=== PATIENT | male | born 2000 | race Hispanic/Latino ===

== ENCOUNTER 2019-08-27 12:55 | Emergency (ER) | payer SELFPAY ==
[2019-08-27 13:06] VITALS: BP 135/85; PULSE 76; RESP 16; TEMP 36.5; O2SAT 100
--- NOTE | 2019-08-27 13:33 | ED.GENADULT ---
HPI - General Adult General Chief complaint: Wound/Laceration Stated complaint: Laceration Time Seen by Provider: 08/27/19 13:47 Source: patient Mode of arrival: ambulatory Limitations: no limitations History of Present Illness HPI narrative: 19-year-old male patient presents to the [facility] with complaints of laceration to his penis for the past 5 days. Patient states it is very sore. Patient states that the pain increases when he has sex. Patient states he is sexually active and does not use protection. Patient states he is in a monogamous relationship that he is aware of. Patient denies any pain with urination, penile discharge. Patient denies any fevers. Related Data Allergies Allergy/AdvReac Type Severity Reaction Status Date / Time No Known Allergies Allergy Verified 06/27/17 04:55 Review of Systems Review of Systems: Narrative: CONSTITUTIONAL: Denies fever, chills, or sweats. EYES: Denies visual changes, redness, or discharge. ENT: Denies rhinorrhea, congestion, sore throat, or otalgia. CARDIOVASCULAR: Denies chest pain, palpitations, or edema. RESPIRATORY: Denies cough or dyspnea. GASTROINTESTINAL: Denies abdominal pain, nausea, vomiting, or diarrhea. GENITOURINARY: Denies dysuria or hematuria. Positive laceration to the penis x5 days SKIN: Denies rash or itching. MUSCULOSKELETAL: Denies back pain, joint pain, or myalgia. NEUROLOGIC: Denies headache, numbness, or weakness. PSYCHIATRIC: Denies anxiety or depression. PMFSH Comments At the time of my signature I agree with nursing past medical history, surgical, social, and family history. There is no relevant family history pertinent to the presenting complaint. Exam Narrative: Exam Narrative: GENERAL: Well-appearing, well-nourished, and in no acute distress. HEAD: Normocephalic, atraumatic. EYES: PERRLA and EOMI. ENT: Nares clear, no rhinorrhea or epistaxis. Mucous membranes moist. NECK: Supple. No lymphadenopathy CHEST: Clear to auscultation. No respiratory distress. HEART: Regular rate and rhythm. No murmur heard. Normal peripheral pulses. ABDOMEN: Soft, nontender, nondistended, normal active bowel sounds. : Normal external genitalia, circumcised male. Urinary meat us clear. Foreskin retracts easily. Patient has a blister/ulcer noted to the 9:00 area of the head of the penis. Patient does complain of pain to this area there is no obvious discharge noted. EXTREMITIES: Normal range of motion. No edema. SKIN: Warm, dry, no rash. NEURO: No focal deficits. Alert and oriented x3. Course Vital Signs Vital signs: Vital Signs Temperature 36.5 C 08/27/19 13:06 Pulse Rate 76 08/27/19 13:06 Respiratory Rate 16 08/27/19 13:06 Blood Pressure 135/85 08/27/19 13:06 Pulse Oximetry 100 08/27/19 13:06 Temperature 36.5 C 08/27/19 13:06 Pulse Rate 76 08/27/19 13:06 Respiratory Rate 16 08/27/19 13:06 Blood Pressure 135/85 08/27/19 13:06 Pulse Oximetry 100 08/27/19 13:06 Vital signs reviewed. The patient has been informed that they may have pre-hypertension or Hypertension based on a BP reading in the department. I recommend that the patient call the primary care provider listed on their discharge instructions or a physician of their choice this week to arrange follow up for further evaluation of possible pre-hypertension or Hypertension Medical Decision Making Differential Diagnosis Differential Diagnosis: Differential diagnosis: Abscess, cellulitis, hidradenitis, laceration, puncture wound. Simple, intermediate, or complex laceration. Gonorrhea, chlamydia, Trichomonas, bacterial vaginosis, herpes, HIV, yeast infection, urinary tract infection. Cussed with patient that we are can go ahead and swab the blister today and send that off for viral culture of possible herpes. Discussed with patient that we are also can get a urine sample from him and test him today for gonorrhea chlamydia and trichomonas and we will go ahead and
[2019-08-27] MEDS: AZITHROMYCIN 250 MG TABLET 1000 MG PO (14:05)
[2019-08-27] MEDS: LIDOCAINE HCL 1% LOCAL INJ 20 ML VIAL IM (14:06)
[2019-08-27] MEDS: cefTRIAXone 250 MG VIAL IM (14:06)
== END 2019-08-27 14:26 | disposition home or self-care (01) ==
PROVIDERS: Emergency Provider Nurse Practitioner Family
DX: S30.822A Blister (nonthermal) of penis, initial encounter (principal); X58.XXXA Exposure to other specified factors, initial encounter
CPT/HCPCS: 87140; 87255; 87491; 87591; 87661; 96372; 99213; A9270; G0463; J0696

== ENCOUNTER 2022-10-23 10:44 | Emergency (ER) | payer OTHER, SELFPAY ==
--- NOTE | ~2022-10-23 | XR_ITS ---
EXAMINATION: XR finger 5th RT min 2V DATE: 10/23/2022 11:06 INDICATION: Injury to the right fifth digit TECHNIQUE: Dorsal palmar, lateral and oblique views of the right fifth digit were obtained COMPARISON: None FINDINGS: Alignment is normal. Prominent osseous excrescence at the dorsal base of the fifth distal phalanx sug gestive of an old healed dorsal avulsion fracture. No acute fractures identified. Joint spaces are no rmal. Small bone island at the hamate. Soft tissues are unremarkable. IMPRESSION: 1. No acute osseous abnormality. Reviewed, dictated and finalized at location A.
[2022-10-23 10:54] VITALS: BP 116/94; PULSE 90; RESP 16; TEMP 36.4; O2SAT 99
--- NOTE | 2022-10-23 11:21 | ED.EXTPRO ---
HPI - Extremity Problem General Chief complaint: Extremity Injury, Upper Stated complaint: Right Hand Pain Time Seen by Provider: 10/23/22 11:05 Source: patient and RN notes reviewed Mode of arrival: ambulatory Limitations: no limitations History of Present Illness HPI Narrative: Patient presents today complaining of pain to his right 5th finger. States he dropped a log on it while making a Bon fire at 9:00 p.m. last night. Denies numbness or tingling. Currently rates his pain 8/10 and has been trying ice and ibuprofen with mild relief. States he previously broke this finger approximately 1 year ago and did not seek treatment. Related Data Home Medications Medication Instructions Recorded Confirmed sertraline 50 mg tablet 50 mg PO DAILY 10/23/22 10/23/22 Allergies Allergy/AdvReac Type Severity Reaction Status Date / Time No Known Allergies Allergy Verified 10/23/22 10:56 Review of Systems Review of Systems: CONSTITUTIONAL: Denies body aches, fever, chills, or sweats. EYES: Denies visual changes, redness, or discharge. ENT: Denies rhinorrhea, congestion, sore throat, or otalgia. CARDIOVASCULAR: Denies chest pain, palpitations, or edema. RESPIRATORY: Denies cough or dyspnea. GASTROINTESTINAL: Denies abdominal pain, nausea, vomiting, or diarrhea. GENITOURINARY: Denies dysuria or hematuria. SKIN: Denies rash, itching, or wounds. MUSCULOSKELETAL: Denies back pain, or myalgia.+ right 5th finger pain NEUROLOGIC: Denies headache, numbness, tingling, or weakness. PSYCH: Denies depression or anxiety. PMFSH Comments At time of signature, I have reviewed and agree with nursing past medical, surgical, social and family history unless otherwise noted. Please see nursing chart for further information. There is no relevant family history pertinent to the presenting complaint Exam Narrative: GENERAL: Well-appearing, well-nourished, and in no acute distress. HEAD: Normocephalic, atraumatic. EYES: EOMI. No redness or drainage. Conjunctivae normal. ENT: Mucous membranes pink and moist. NECK: Normal AROM. CHEST: No respiratory distress. EXTREMITIES: Right 4th finger: Tenderness to the D IP with mild edema. Full AROM with increased pain. Distal sensation intact. Capillary refill normal. Nail is not affected. SKIN: Warm, dry, no rash. Capillary refill normal. Normal skin turgor. NEURO: No focal deficits. Alert and oriented x3. Gait steady. PSYCH: Normal affect. No signs of depression or anxiety. Course Course Level of Care: Express Care Visit Vital Signs Vital signs: Vital Signs Temperature 97.6 F 10/23/22 10:54 Pulse Rate 90 10/23/22 10:54 Respiratory Rate 16 10/23/22 10:54 Blood Pressure 116/94 H 10/23/22 10:54 Pulse Oximetry 99 10/23/22 10:54 Oxygen Delivery Room Air 10/23/22 10:54 Temperature 97.6 F 10/23/22 10:54 Pulse Rate 90 10/23/22 10:54 Respiratory Rate 16 10/23/22 10:54 Blood Pressure 116/94 H 10/23/22 10:54 Pulse Oximetry 99 10/23/22 10:54 Oxygen Delivery Room Air 10/23/22 10:54 Reviewed. Pt has been instructed to follow up with his PCP regarding his elevated blood pressure today. Procedures Orthopedic Splinting/Casting Injury #1: Splinting/Casting Date: 10/23/22 Splinting/Casting Time: 11:26 Side: right Upper Extremity Injury Location: finger Upper Extremity Immobilizer: finger (other) Pre-Formed: other (Finger splint) Pre-Procedure Neuro Vascular Exam: normal Post-Procedure Neuro Vascular Exam: normal Additional Comments: Placed by tech [facility] - Extremity (Nontraumatic) MDM Narrative Medical decision making narrative: X-ray negative for fracture. Splint applied for comfort. Anticipatory guidance given. Differential Diagnosis Differential diagnosis: Likely other (Finger fracture, finger sprain, contusion) Imaging Data Radiologist's impression: ITS Impressions Fin
== END 2022-10-23 11:30 | disposition home or self-care (01) ==
PROVIDERS: Emergency Provider Nurse Practitioner
DX: S60.051A Contusion of right little finger without damage to nail, initial encounter (principal); W22.8XXA Striking against or struck by other objects, initial encounter
CPT/HCPCS: 29130; 73140; 99213; G0463

== ENCOUNTER 2023-01-16 11:03 | Emergency (ER) | payer OTHER, SELFPAY ==
--- NOTE | 2023-01-16 11:05 | ED.SKABFB ---
HPI - Skin/Abscess/Foreign Bdy General Chief complaint: Skin/Abscess/Foreign Body Stated complaint: Skin Issues Time Seen by Provider: 01/16/23 11:05 Source: patient Mode of arrival: ambulatory Limitations: no limitations History of Present Illness HPI narrative: Brandon is a 22-year-old male patient presenting to the clinic today with complaints of hair loss on his scalp. He reports he has had a spot on the top of his head that has hair loss. Area is scaly and itchy. Nonpainful. He denies any known liver issues. Related Data Home Medications Medication Instructions Recorded Confirmed sertraline 50 mg tablet 50 mg PO DAILY 10/23/22 01/16/23 Allergies Allergy/AdvReac Type Severity Reaction Status Date / Time No Known Allergies Allergy Verified 01/16/23 11:06 Review of Systems Review of Systems: Pertinent positives per HPI. Patient denies any fever, chills, headache, visual changes, dizziness, cough, runny nose, sore throat, shortness of breath, chest pain, palpitations, nausea, vomiting, diarrhea, constipation, abdominal pain, or any urinary issues. PMFSH Comments At the time of my signature, I reviewed and agree with the nursing past medical, surgical, social, and family history. There is no relevant family history pertinent to the patient complaint. Exam Narrative: General: Well-developed, well nourished, in no apparent distress Head: Normocephalic, atraumatic. Cardio: Regular rate and rhythm, s1 and s2 normal, no murmur appreciated. Resp: Clear to auscultation bilaterally, no rhonchi, rales, wheezing or rubs. Integumentary: [place], warm, and dry, half dollar size scaly area to the scalp with hair loss-right side of scalp Course Course Emergency Course: Portions of this record may have been created with voice recognition software. Level of Care: Express Care Visit Vital Signs Vital signs: Vital signs reviewed MDM - Skin/Abscess/Foreign Bdy MDM Narrative Medical decision making narrative: At the time of the patient is resting comfortably on the exam table. I suspect patient may have tinea capitis/alopecia. 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 Supportive measures were discussed with the patient he voiced understanding discharge instructions and agrees to treatment plan. Differential Diagnosis Differential diagnosis: Likely abscess of skin or subcutaneous tissue, eczema, insect bites, impetigo, contact dermatitis and other (Tinea capitis, alopecia, psoriasis) Discharge Plan Discharge Clinical Impression: Alopecia of scalp, Tinea capitis Patient Disposition: Home, Self-Care Condition: Stable Instructions: Antibiotic Form, Tinea Corporis (ED), Alopecia (DC) Additional Instructions: Take medication as prescribed-take with a high fat meal Follow-up with your PCP in 4 weeks if symptoms persist-may need further evaluation-lab work Recommend follow-up with the senior c software engineer Prescriptions: New griseofulvin microsize 500 mg tablet 500 mg PO DAILY 28 Days Qty: 28 0RF Rx Instructions: must administer with high-fat meal or food No Action sertraline 50 mg tablet 50 mg PO DAILY Follow-up/Referrals: Brett,Kim Monteiro MD [Primary Care Provider] - Stand Alone Forms: Work/School Release IP Time of Disposition: 11:22 Quality NIHSS Nursing Documentation ED NIHSS nursing documentation: reviewed/agree
[2023-01-16 11:13] VITALS: BP 127/84; PULSE 90; RESP 16; TEMP 36.5; O2SAT 99
[2023-01-16 11:18] VITALS: BP 127/84; PULSE 90; RESP 16; TEMP 36.5; O2SAT 99
== END 2023-01-16 11:28 | disposition home or self-care (01) ==
PROVIDERS: Emergency Provider Nurse Practitioner Family; PCP Family Medicine
DX: L65.9 Nonscarring hair loss, unspecified (principal); B35.0 Tinea barbae and tinea capitis; F41.9 Anxiety disorder, unspecified
CPT/HCPCS: 99213; G0463

== ENCOUNTER 2023-07-08 09:49 | Emergency (ER) | payer OTHER, SELFPAY ==
--- NOTE | ~2023-07-08 | XR_ITS ---
EXAMINATION: XR chest 2V DATE: 07/08/2023 10:23 INDICATION: Chest pain. TECHNIQUE: Frontal and lateral views of the chest were obtained. COMPARISON: CT abdomen and pelvis 06/27/2017 FINDINGS: There is mild scarring at the lung apices. No pleural effusion or pneumothorax. The heart s ize is normal. IMPRESSION: 1. Mild scarring at the lung apices. Reviewed, dictated and finalized at location A. AL WORKER DELINQU[employer]Y PREVENTION
[2023-07-08 09:58] VITALS: BP 131/84; PULSE 83; RESP 16; TEMP 36.3; O2SAT 100
--- NOTE | 2023-07-08 10:05 | ECG_ITS ---
Measurements Intervals [place] Rate: 76 P: 28 NM: 160 QRS: 2 QRSD: 79 T: 1 QT: 361 QTc: 408 Interpretive Statements SINUS RHYTHM WITH SINUS ARRHYTHMIA RSR' IN V1 OR V2, PROBABLY NORMAL VARIANT BORDERLINE ECG NO PREVIOUS ECG AVAILABLE FOR COMPARISON Electronically Signed On 07-08-2023 11:40:19 COMBINE OPERATOR by Pj Porter D.O.
--- NOTE | 2023-07-08 10:12 | ED.CHESTPAIN ---
HPI - Chest Pain General Chief Complaint: Chest Pain Stated Complaint: Chest Wall Pain Time Seen by Provider: 07/08/23 09:51 Source: patient Mode of arrival: ambulatory Limitations: no limitations History of Present Illness HPI narrative: Brandon is a 23-year-old male patient presenting to the clinic today with complaints of mid chest wall pain. He denies any radiation of pain. States that the pain is been going on for approximately 3 weeks. Pain is worse when he is lying down at night. States that it is an aching pain. Rates his pain a 4/10. 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 He denies any history of high blood pressure, hypercholesterolemia, prior cardiac history, pneumonia, bronchitis, or asthma. Related Data Home Medications Medication Instructions Recorded Confirmed sertraline 50 mg tablet 50 mg PO DAILY 10/23/22 07/08/23 Allergies Allergy/AdvReac Type Severity Reaction Status Date / Time No Known Allergies Allergy Verified 01/16/23 11:06 Review of Systems Review of Systems: Pertinent positives per HPI. Patient denies any fever, chills, rash, headache, visual changes, dizziness, cough, runny nose, sore throat, shortness of breath, chest pain, palpitations, nausea, vomiting, diarrhea, constipation, abdominal pain, or any urinary issues. PMFSH Comments At the time of my signature, I reviewed and agree with the nursing past medical, surgical, social, and family history. There is no relevant family history pertinent to the patient complaint. Course Course Emergency Course: Portions of this record may have been created with voice recognition software. Level of Care: Express Care Visit Vital Signs Vital signs: Vital Signs Temperature 36.3 C L 07/08/23 09:58 Pulse Rate 83 07/08/23 09:58 Respiratory Rate 16 07/08/23 09:58 Blood Pressure 131/84 07/08/23 09:58 Pulse Oximetry 100 07/08/23 09:58 Oxygen Delivery Room Air 07/08/23 09:58 Temperature 36.3 C L 07/08/23 09:58 Pulse Rate 83 07/08/23 09:58 Respiratory Rate 16 07/08/23 09:58 Blood Pressure 131/84 07/08/23 09:58 Pulse Oximetry 100 07/08/23 09:58 Oxygen Delivery Room Air 07/08/23 09:58 Vital signs reviewed MDM - Chest Pain MDM Narrative Medical decision making narrative: At the time of visit patient is resting comfortably on the exam table. Patient appears to be nontoxic. EKG shows sinus rhythm with sinus arrhythmia with a heart rate 76 beats per minute without ectopy. No ST elevation or depression noted, no T wave inversion. Chest x-ray negative for any sign pneumonia. I suspect patient may have costochondritis/chest wall pain. Prescription for naproxen was sent to the pharmacy. Supportive measures were discussed with the patient and they voiced understanding discharge instructions and agrees to treatment plan. Return precautions reviewed Differential Diagnosis Differential diagnosis: Likely pneumothorax, stable angina, unstable angina pectoris, atypical chest pain, st elevation myocardial infarction, costochondritis and chest pain ECG Data EKG #1: Attestation: I personally reviewed and interpreted this ECG as follows: ECG completion date: 07/08/23 ECG completion time: 10:12 Prior ECG tracings: not available for review Interpretation: EKG shows sinus rhythm with a sinus arrhythmia without ectopy, no ST elevation or depression noted, no T-wave inversion noted, ventricular rate is 76 beats per minute, PA interval is 160 milliseconds, QRS durations 79 milliseconds, QT-QTC is 367-392 milliseconds, P-R-T axis is 28 2 1 Discharge Plan Discharge Clinical Impression: Costalchondritis Patient Disposition: Home, Self-Care Condition: Stable Instructions: Antibiotic Form, Costochondritis (ED), Chest Wall Pain (ED) Additional Instructions: EKG is normal in the clinic today Madeline
== END 2023-07-08 10:41 | disposition home or self-care (01) ==
PROVIDERS: Emergency Provider Nurse Practitioner Family; PCP Family Medicine
DX: M94.0 Chondrocostal junction syndrome [Tietze] (principal); Z79.899 Other long term (current) drug therapy
CPT/HCPCS: 71046; 93005; 99213; G0463

== ENCOUNTER 2023-12-30 20:40 | Emergency (ER) | payer OTHER, SELFPAY ==
--- NOTE | ~2023-12-30 | CT_ITS ---
EXAMINATION: CT brain wo con DATE: 12/30/2023 21:10 INDICATION: HEADACH . TECHNIQUE: Computed tomography (CT) of the head was performed without intravenous contrast. The mA wa s adjusted according to patient size. Iterative reconstruction technique was employed. The dose-lengt h product was 681.00 mGy-cm. COMPARISON: None. FINDINGS: No acute intracranial hemorrhage or extra-axial fluid collection. No hydrocephalus, mass, or herniation. No acute ischemic infarct. Unremarkable dural venous sinus attenuation. No acute osseous abnormality. The aerated spaces are clear. IMPRESSION: No acute intracranial process. Reviewed, dictated and finalized at location K.
--- NOTE | ~2023-12-30 | XR_ITS ---
EXAMINATION: XR chest 1V Exam Date/Time: 12/30/2023 21:05 CDT HISTORY: FEVER, HEADACHE, BODYACHE X 4-5 DAYS Comparison: 07/08/2023. RESULT: Lines, tubes, and devices: None. Lungs and pleura: Clear. Cardiomediastinal silhouette: Normal. Other: No acute osseous or upper abdominal finding. IMPRESSION: No acute cardiopulmonary process. Reviewed, dictated and finalized at location K.
[2023-12-30 20:44] VITALS: BP 136/87; PULSE 105; RESP 18; TEMP 36.8; O2SAT 98
--- NOTE | 2023-12-30 20:49 | ED.HA ---
HPI - Headache General Chief Complaint: Headache <Scotty Connolly MD - Last Filed: 12/30/23 21:47> Stated Complaint: migraines, chills, bodyaches <Scotty Connolly MD - Last Filed: 12/30/23 21:47> Time Seen by Provider: 12/30/23 20:49 <Scotty Connolly MD - Last Filed: 12/30/23 21:47> Source: patient <Scotty Connolly MD - Last Filed: 12/30/23 21:47> History of Present Illness HPI Narrative: 23 YEARS OLD MALE CAME TO THE EMERGENCY ROOM BY PRIVATE CAR WITH HIS COMPLAINING OF GENERALIZED HEADACHE MAINLY MAINLY AT THE OCCIPITAL AREA, THROBBING, INTERMITTENT, GETS BETTER ON EXCEDRIN, WORSE WITH LIGHT, NOISE AND STRESS, PATIENT USUALLY GETS HEADACHE AND USUALLY GETS BETTER EXCEDRIN BUT THIS 1 HAS BEEN GOING FOR THE LAST 5 DAYS. STILL ME THAT HIS TEMPERATURE AT HOME 1 1 WITH BODY ACHES AND CHILLS. LAST TYLENOL INTAKE WAS 5 HOURS PRIOR TO ARRIVAL TO THE ED. SHE REPORTS LITTLE NAUSEA, NOT NOW. PATIENT IS HEALTHY OTHERWISE. DENIES SICK CONTACT, RUNNY NOSE, SNEEZING, COUGHING, SORE THROAT, EARACHE, CHEST PAIN, ABDOMINAL PAIN OR BACK PAIN. <Scotty Connolly MD - Last Filed: 12/30/23 21:47> Related Data Home Medications: Home Medications Medication Instructions Recorded Confirmed sertraline 50 mg tablet 50 mg PO DAILY 10/23/22 07/08/23 <Scotty Connolly MD - Last Filed: 12/30/23 21:47> Allergies/Adverse Reactions: Allergies Allergy/AdvReac Type Severity Reaction Status Date / Time No Known Allergies Allergy Verified 12/30/23 20:48 <Scotty Connolly MD - Last Filed: 12/30/23 21:47> Review of Systems Review of Systems: All systems reviewed & are unremarkable except as noted in HPI and below <Scotty Connolly MD - Last Filed: 12/30/23 21:47> Exam Narrative: GENERAL APPEARANCE: WELL-DEVELOPED, WELL-NOURISHED SKIN: NORMAL COLOR HEAD: NORMOCEPHALIC, NONTRAUMATIC EYES: CLEAR CONJUNCTIVA ENT: OROPHARYNX NORMAL, EARS NORMAL, NOSE NORMAL NECK: SUPPLE, NONTENDER CHEST AND RESPIRATORY: AIRWAY PATENT, NO RESPIRATORY DISTRESS, NO ACCESSORY MUSCLE USE HEART: REGULAR RATE/RHYTHM ABDOMEN: SOFT, NONTENDER, NO ORGANOMEGALY, QUIET BOWEL SOUNDS VASCULAR: NORMAL PERIPHERAL PULSES, NORMAL CAPILLARY REFILL. MUSCULOSKELETAL: NORMAL RANGE OF MOTION, NONTENDER BACK NEUROLOGIC: ALERT AND ORIENTED ?3, CORK INSULATION SETTER IS NORMAL TESTED, NO GROSS MOTOR DEFICIT <Scotty Connolly MD - Last Filed: 12/30/23 21:47> Course Course Emergency Course: CAROL: 2241 Received signout on patient. Lab work and imaging reviewed. CBC grossly normal, electrolytes show mild hypokalemia, otherwise normal with normal LFTs and normal renal function. Lactic normal. ESR grossly normal. UA negative for UTI. COVID, influenza, RSF, mono negative. CT brain negative. CXR negative. Pending strep swab. Strep swab negative, patient feeling much better. The results of pertinent diagnostic studies and exam findings were discussed. The patient?s provisional diagnosis and plan of care were discussed with the patient and present family. The patient and/or present family expressed understanding of the diagnosis and plan. The nurse was instructed to provide written instructions and appropriate follow-up information. The patient understands their need and responsibility to obtain additional follow-up as instructed. The risks of medications administered and prescribed were discussed with the patient and family present. <Daniela John MD - Last Filed: 12/31/23 06:03> Vital Signs Vital signs: Vital Signs Temperature 98.2 F 12/30/23 20:44 Pulse Rate 105 H 12/30/23 20:44 Respiratory Rate 18 12/30/23 20:44 Blood Pressure 136/87 12/30/23 20:44 Pulse Oxime
[2023-12-30 21:46] LABS: Appearance Urine Clear (Clear); Bacteria Urine None Seen /hpf; Bilirubin Urine 1+ (Negative); Blood Urine Negative (Negative); Color Urine Dark Yellow (Yellow); Glucose Urine UA Negative (Negative); Ketones Urine Trace mg/dL (Negative); Leukocyte Esterase Ur Negative LEU/UL (Negative); Mucus Urine Present /lpf; Need Manual Microscopic Reviewed; Nitrate Urine Negative (Negative); Non Pathogenic Casts 0-2; Protein Urine Trace mg/dL (Negative); RBC Urine 0-2 /hpf (0-2); Specific Grav Ur 1.037 (1.001-1.035); Squamous Epithelial Cell Urine None Seen /hpf (Few); WBC Urine 0-5 /hpf (0-3)
[2023-12-30 21:49] LABS: Add Urine Microscopic? YES
[2023-12-30] MEDS: SODIUM CHLORIDE 0.9% IV 1,000 ML 999 ML IV CONT (21:50)
[2023-12-30 21:51] LABS: Amphetamine Screen Urine Negative (Negative); Barbiturate Screen Urine Negative (Negative); Benzodiazepines Screen Urine Negative (Negative); Cannabinoid Screen Urine Negative (Negative); Cocaine Screen Urine Negative (Negative); Methadone Screen Urine Negative (Negative); Opiate Screen Urine Negative (Negative); Phencyclidine Screen Urine Negative (Negative)
[2023-12-30] MEDS: KETOROLAC 30 MG/ML VIAL (*BKC) IV PUSH (21:51)
[2023-12-30 22:06] LABS: Basophils Absolute Auto 0.1 K/mm3 (0.0-0.1); Basophils Percent Auto 0.5 % (0.2-1.2); Eosinophils Absolute Auto 0.3 K/mm3 (0-0.3); Eosinophils Percent Auto 2.8 % (0-4.4); Hematocrit 41.1 % (42.0-52.0); Hemoglobin 14.5 g/dL (14.0-18.0); Immature Granulocyte Absolute 0.04 K/mm3 (0.00-0.031); Immature Granulocyte Percent A 0.4 % (0-0.5); Lymphocytes Absolute Auto 2.29 K/mm3 (0.9-3.2); Mean Corpuscular HGB Conc 35.3 g/dl (32-36); Mean Corpuscular Hemoglobin 28.7 pg (26-34); Mean Corpuscular Volume 81.4 fl (80-100); Mean Platelet Volume 10.1 fl (7.4-10.4); Monocytes Absolute Auto 0.9 K/mm3 (0.1-0.6); Monocytes Percent Auto 8.3 % (2.6-8.5); Neutrophils Absolute Auto 7.3 K/mm3 (1.3-6.7); Platelet Count Result 227 k/mm3 (150-375); Red Blood Count 5.05 M/mm3 (4.6-6.20); Red Cell Distribution Width 12.8 % (11.5-14.5); White Blood Count 10.9 K/mm3 (4.5-10.0)
[2023-12-30 22:16] LABS: Alanine Aminotransferase 21 U/L (6-50); Albumin Level 4.8 g/dL (3.5-5.1); Alkaline Phosphatase 95 U/L (38-126); Anion Gap 11 mmol/L (4-12); Aspartate Amino Transferase 26 U/L (17-59); Bilirubin,Total 0.6 mg/dL (0.2-1.3); Blood Urea Nitrogen 13 mg/dL (9-20); Calcium 9.1 mg/dL (8.4-10.2); Carbon Dioxide 29 mmol/L (22-30); Chloride 101 mmol/L (98-107); Estimated CRCL calculation 113 ml/min; Estimated Glomerular Filt Rate > 60; Glucose 100 mg/dL (65-110); Lactic Acid Reflex 1.2 mmol/L (0.7-2.0); Potassium 3.2 mmol/L (3.4-5.0); Sodium 141 mmol/L (137-145)
[2023-12-30 22:17] LABS: Influenza A QL RT-PCR Negative (Negative); Influenza B QL RT-PCR Negative (Negative); RSV RNA, RT-PCR Negative (Negative); SARS-CoV-2 RNA PCR Negative (Negative)
[2023-12-30 22:20] LABS: Monoscreen Negative (Negative); Negative Monotest Control Negative (Negative); Positive Monotest Control Positive (Positive)
[2023-12-30 22:30] LABS: Erythrocyte Sedimentation Rate 21 mm/hr (0-20)
[2023-12-30] MEDS: POTASSIUM BICARBONATE 25 MEQ TABEF 50 MEQ PO (22:46)
[2023-12-30 23:19] LABS: Strep Group A RT-PCR NOT DETECTED (Negative)
[2023-12-30 23:23] LABS: EDSTREPNEGPOS1 Presumptive Negative
== END 2023-12-30 23:54 | disposition home or self-care (01) ==
PROVIDERS: Emergency Provider Emergency Medicine; PCP Family Medicine
DX: B34.9 Viral infection, unspecified (principal); R51.9 Headache, unspecified; Z20.822 Contact with and (suspected) exposure to COVID-19
CPT/HCPCS: 36415; 70450; 71045; 80053; 80307; 81001; 83605; 85025; 85652; 86308; 87040; 87637; 87651; 87880; 96361; 96374; 99284; A9270; J1885; J7030